=== PATIENT | female | born 1950 | race Caucasian/White ===

== ENCOUNTER 2017-03-14 17:15 | Inpatient (IN) ==
[2017-03-14] MEDS ORDERED: DUONEB (A & A) INH ONE (18:44)
--- NOTE | 2017-03-14 18:45 | PROVIDER DOCUMENTATION ---
HPI-General Adult - General Chief Complaint: Female Stated Complaint: UNABLE TO URINATE Time Seen by Provider: 03/14/17 18:23 Source: patient Allergies/Adverse Reactions: Patient Allergies Allergy/AdvReac Type Severity Reaction Status Date / Time No Known Allergies Allergy Verified 12/24/16 23:38 Home Medications: Home Medication List Medication Instructions Recorded Confirmed Last Taken Type Potassium Chloride 10 meq PO DAILY 12/24/16 03/14/17 03/14/17 08:00 History Spironolactone 25 mg PO DAILY 12/24/16 03/14/17 03/14/17 08:00 History Tramadol [Ultram] 50 mg PO BID 12/24/16 03/14/17 2 Months Ago History Losartan Potassium [Cozaar] 100 mg PO DAILY #30 tablet 12/25/16 03/14/17 08:00 Rx Triamterene/Hctz [Maxzide 75/50] 1 each PO DAILY #30 tablet 12/25/16 03/14/17 08:00 Rx - History of Present Illness -Gen Adult Nature of Presenting Problems: 67 year old obese WF presents with multiple complaints. pt reports a 5 day history of pain with urination and then this afternoon when she would urinate, she would urinate, stop and felt like she was unable to empty her bladder. associated symptoms include weakness, loss of appetite with nausea. pt reports she has eaten nothing today at all. additional complaints include an abscess to her right inner thigh that developed 4 days ago with development of erythema, hot painful bilateral lower extremities. pt reports she does not walk and uses a wheelchair because her legs "do not work right." she reports she has been in a wheelchair for years. additional complaints include shortness of breath with wheezing for weeks, exacerbated with exertion. positive for nonproductive cough. pt in no distress, awake, alert, appropriate. pt reports she does not have a PMD, should be taking medications for HTN but ran out several weeks ago. pt reports she has insurance but does not like seeing physicians. pt report she saw Dr. Messer 10 years ago but she cant remember why she was seeing him. Location of Pain/Injury: reports: abdomen Pain Radiation: reports: no radiation Quality of Pain: reports: dull Severity: reports: mild Onset/Duration: reports: 5 days ago Timing: reports: still present, constant, getting worse Context/Activities at Onset: reports: none Modifying Factors: improves with: nothing Associated Symptoms: reports: fatigue, fever/chills, loss of appetite, malaise, nausea, shortness of breath, weakness Similar Symptoms Previously?: No Recently seen or treated by another doctor?: No Review of Systems - Adult - REVIEW OF SYSTEMS - ADULT Constitutional: reports: see HPI, chills, fatique. denies: fever Eyes: reports: no symptoms reported. denies: discharge, blurred vision, double vision Ears, Nose, Mouth & Throat: reports: no symptoms reported. denies: ear discharge, ear pain, nose pain, loose teeth, throat pain, throat swelling Cardiovascular: reports: no symptoms reported. denies: chest pain, syncope Respiratory: reports: see HPI, dyspnea on exertion, shortness of breath, wheezing. denies: chronic cough, cough, excessive sputum production, hemoptysis , pleurisy Gastrointestinal: reports: see HPI, abdominal pain, nausea, poor appetite. denies: hematemesis, constipation, diarrhea, difficulty swallowing, frequent heartburn, vomiting Genitourinary: reports: see HPI, dysuria, hesitency, incontinence, urinary retention. denies: discharge, frequency Musculoskeletal: reports: no symptoms reported Integumentary: reports: see HPI, rash, skin sores/ulcer Neurological: reports: no symptoms reported. denies: ataxia, dizziness/vertigo , numbness, paresthesia, tremors Psychiatric: reports: no symptoms reported Endocrine: reports: no symptoms reported Hematologic/Lymphatic: reports: no symptoms reported Allergic/Immunologic: reports: no symptoms reported All Other Systems: Reviewed and Negative Past History - Adult - PAST MEDICAL HISTORY-ADULT Review of Records: reports: Old Records Reviewed, Nursing Assessment Review, Medications Reviewed, Social history reviewed & non-contributory. Major Childhood Illnesses: reports: denies history Cardiovascular: reports: HTN Respiratory: reports: denies history Gastrointestinal: reports: denies history Obstetrical/Gynecological: reports: denies history Genitourinary: reports: denies history Musculoskeletal: reports: arthritis Neurological: reports: denies history Endocrine/Immune: reports: denies history Other Conditions: reports: denies history - PRIOR SURGERIES/PROCEDURES Surgical/Procedure History: reports: none - IMMUNIZATION STATUS Childhood Immunizations: See Nurse Assessment Flu Vaccine: See Nurse Assessment - FAMILY HISTORY Family History: reviewed, not pertinent - SOCIAL HISTORY Smoking: cigarettes, less than 1 pack/day Provider spent 3-5 mins advising pt. on dangers of tobacco.: Discussed manners to quit use, and f/u contacts for add'l counseling. Substance Use: none/never Alcohol Use Frequency: never Physical Exam-General - PHYSICAL EXAM-ADULT Initial Vital Signs Reviewed: Yes - CONSTITUTIONAL General Appearance: appears well, alert, no apparent distress, obese. negative : mild distress, moderate distress, severe distress, lethargic, slow to respond , obtunded, combative - EYES Eyes: pink conjunctivae. negative: photophobia, sclera injected, scleral icterus, subconjunctival hemorrhage - HEAD, EARS, NOSE, MOUTH & THROAT HENMT: normocephalic/atraumatic, moist mucous membranes, normal ENT inspection - NECK Neck: non-tender, full range of motion, supple, normal inspection. negative: C- spine tenderness, limited range of motion, tender lateral, tender midline - RESPIRATORY Respiratory: chest non-tender, no pleuratic chest pain, no respiratory distress , no accessory muscle use, decreased breath sounds, rhonchi, wheezing. negative : lungs clear, normal breath sounds, respiratory distress, accessory muscle use , crackles, rales, stridor, decreased rate, increased rate - CARDIOVASCULAR Cardiovascular: normal peripheral pulses, regular rate, rhythm - GASTROINTESTINAL (ABDOMEN) Abdominal Exam: normal bowel sounds, soft, tenderness (suprapubic region). negative: non tender, no organomegaly, no pulsatile mass, abdominal bruit, abnormal bowel sounds, distended, guarding, rigid, rebound, hernia, mass, hepatomegaly, spleenomegaly, McBurney's point tenderness, Lopez's sign, obturator sign, psoas, Rovsing's sign - MUSCULOSKELETAL Back Exam: normal inspection, no CVA tenderness, no vertebral tenderness. negative: CVA tenderness, decreased range of motion, swelling, vertebral tenderness Extremity: normal capillary refill, calf tenderness (bilaterally), erythema ( bilateral lower extremity erythema;), inflammation, pedal edema, swelling, tenderness. negative: normal range of motion, non-tender, normal gait, normal inspection, no pedal edema, no calf tenderness, pelvis stable, abnormal NV exam , deformity, joint effusion, pulse deficit, slow capillary refill Peripheral Pulses: radial (R): 2+, radial (L): 2+, dorsalis-pedis (R): 2+, dorsalis-pedis (L): 2+ - SKIN Integumentary: normal turgor, warm/dry, erythema, swelling, tenderness, warm ( hot to touch bilaterally). negative: normal color - NEUROLOGIC Neurologic: grossly normal, no motor/sensory deficits - PSYCHIATRIC Psych/Mental Status: normal mood/affect, normal thought content, normal thought process, oriented x 3 Progress - PLAN OF CARE/RESULTS Progress/Plan/Lab Results: Vital Signs - 8 hr 03/14/17 17:16 Temperature 99.1 F Pulse Rate 88 Respiratory Rate 20 Blood Pressure 157/43 O2 Sat by Pulse Oximetry 100 Orders Category Date Time Status Paredes Cath Insertion ORDERED Care 03/14/17 18:42 Ordered Saline Loc DIRECTED Care 03/14/17 18:42 Ordered NPO Diet 03/14/17 18:42 Ordered FLAT/UPRIGHT ABD/1 VIEW CHEST [RAD] Stat Exams 03/14/17 18:43 Ordered AMYLASE [CHEM] Stat Lab 03/14/17 18:42 Uncollected BLOOD CULTURE [BLDCUL] Stat Lab 03/14/17 18:43 Uncollected CBC WITH ELECTRONIC DIFF [HEME] Stat Lab 03/14/17 18:42 Uncollected COMPREHENSIVE METABOLIC PANEL [CHEM] Stat Lab 03/14/17 18:42 Uncollected LACTATE, PLASMA [CHEM] Stat Lab 03/14/17 18:42 Uncollected LIPASE [CHEM] Stat Lab 03/14/17 18:42 Uncollected URINALYSIS W/POSS RFLX CULT-1 [URINALYSIS] Stat Lab 03/14/17 18:42 Uncollected Albuterol 2.5MG/Ipratrop 0.5MG [Duoneb (A & A)] Med 03/14/17 18:44 Once 3 ml INH NOW ONE Aerosol Treatments Routine Oth 03/14/17 18:44 Ordered Aerosol Treatments Stat Oth 03/14/17 18:44 Ordered Laboratory Tests 03/14/17 03/14/17 03/14/17 19:14 20:20 20:20 WBC RBC Hgb Hct MCV MCH MCHC RDW Std Deviation Plt Count MPV Immature Gran % (Auto) Neut % (Auto) Lymph % (Auto) [place] % (Auto) Eos % (Auto) Baso % (Auto) Immature Gran # (Auto) Neut # (Auto) Lymph # (Auto) [place] # (Auto) Eos # (Auto) Baso # (Auto) D-Dimer Sodium Potassium Chloride Carbon Dioxide Anion Gap BUN Creatinine Estimated GFR/1.73 m2 BUN/Creatinine Ratio Glucose Calculated Osmolality Calcium Total Bilirubin AST ALT Alkaline Phosphatase Creatine Kinase 44 Troponin T < 0.010 Total Protein Albumin Globulin Albumin/Globulin Ratio Amylase Lipase Plasma Lactate Urine Source CATH Urine Color BROWN Urine Turbidity TURBID Urine pH 6.0 Ur Specific [place] 1.005 Urine Protein 200 A Ur Glucose (Stick) NEGATIVE Ur Ketones (Stick) NEGATIVE Urine Blood SMALL A Urine Nitrite POSITIVE A Urine Bilirubin NEGATIVE Urobilinogen Dipstick NORMAL Urine Leukocytes LARGE A Urine WBC (Auto) TNTC A Urine RBC (Auto) <10 U Epithel Cells (Auto) >10 A Urine Bacteria (Auto) 1+ Urine Crystals Not Reportable Small Round Cells Not Reportable Urine Casts NONE SEEN Urine Yeast-like Cells NONE SEEN 03/14/17 03/14/17 03/14/17 20:20 20:20 20:20 WBC 10.53 RBC 4.20 Hgb 11.4 L Hct 35.3 L MCV 84.0 MCH 27.1 MCHC 32.3 L RDW Std Deviation 14.2 Plt Count 267 MPV 9.3 Immature Gran % (Auto) 0.6 H Neut % (Auto) 51.5 Lymph % (Auto) 35.8 [place] % (Auto) 10.6 H Eos % (Auto) 1.3 Baso % (Auto) 0.2 Immature Gran # (Auto) 0.06 H Neut # (Auto) 5.42 Lymph # (Auto) 3.77 H [place] # (Auto) 1.12 H Eos # (Auto) 0.14 Baso # (Auto) 0.02 D-Dimer 0.54 H Sodium 141 Potassium 3.7 Chloride 98 Carbon Dioxide 28 Anion Gap 15 BUN 6 L Creatinine 0.7 Estimated GFR/1.73 m2 > 60 BUN/Creatinine Ratio 9 Glucose 126 H Calculated Osmolality 280 Calcium 9.0 Total Bilirubin 0.33 AST 13 ALT 18 Alkaline Phosphatase 88 Creatine Kinase Troponin T Total Protein 6.4 Albumin 3.4 L Globulin 3.0 Albumin/Globulin Ratio 1.1 Amylase 14 L Lipase 11 L Plasma Lactate Urine Source Urine Color Urine Turbidity Urine pH Ur Specific [place] Urine Protein Ur Glucose (Stick) Ur Ketones (Stick) Urine Blood Urine Nitrite Urine Bilirubin Urobilinogen Dipstick Urine Leukocytes Urine WBC (Auto) Urine RBC (Auto) U Epithel Cells (Auto) Urine Bacteria (Auto) Urine Crystals Small Round Cells Urine Casts Urine Yeast-like Cells 03/14/17 20:20 WBC RBC Hgb Hct MCV MCH MCHC RDW Std Deviation Plt Count MPV Immature Gran % (Auto) Neut % (Auto) Lymph % (Auto) [place] % (Auto) Eos % (Auto) Baso % (Auto) Immature Gran # (Auto) Neut # (Auto) Lymph # (Auto) [place] # (Auto) Eos # (Auto) Baso # (Auto) D-Dimer Sodium Potassium Chloride Carbon Dioxide Anion Gap BUN Creatinine Estimated GFR/1.73 m2 BUN/Creatinine Ratio Glucose Calculated Osmolality Calcium Total Bilirubin AST ALT Alkaline Phosphatase Creatine Kinase Troponin T Total Protein Albumin Globulin Albumin/Globulin Ratio Amylase Lipase Plasma Lactate 1.3 Urine Source Urine Color Urine Turbidity Urine pH Ur Specific [place] Urine Protein Ur Glucose (Stick) Ur Ketones (Stick) Urine Blood Urine Nitrite Urine Bilirubin Urobilinogen Dipstick Urine Leukocytes Urine WBC (Auto) Urine RBC (Auto) U Epithel Cells (Auto) Urine Bacteria (Auto) Urine Crystals Small Round Cells Urine Casts Urine Yeast-like Cells Orders Category Date Time Status Cardiac Monitoring DIRECTED Care 03/14/17 20:00 Active Paredes Cath Insertion ORDERED Care 03/14/17 18:42 Active Saline Loc DIRECTED Care 03/14/17 18:42 Active NPO Diet 03/14/17 18:42 Active FLAT/UPRIGHT ABD/1 VIEW CHEST [RAD] Stat Exams 03/14/17 18:43 Completed AMYLASE [CHEM] Stat Lab 03/14/17 20:20 Completed BLOOD CULTURE [BLDCUL] Stat Lab 03/14/17 20:20 Results CBC WITH ELECTRONIC DIFF [HEME] Stat Lab 03/14/17 20:20 Completed CK PROFILE [SP CHEM] Stat Lab 03/14/17 20:20 Completed COMPREHENSIVE METABOLIC PANEL [CHEM] Stat Lab 03/14/17 20:20 Completed D-DIMER [CHEM] Stat Lab 03/14/17 20:20 Completed LACTATE, PLASMA [CHEM] Stat Lab 03/14/17 20:20 Completed LIPASE [CHEM] Stat Lab 03/14/17 20:20 Completed TROPONIN T Stat Lab 03/14/17 20:20 Completed URINALYSIS W/POSS RFLX CULT-1 [URINALYSIS] Stat Lab 03/14/17 19:14 Completed URINE CULTURE [RM] Routine Lab 03/14/17 19:56 Received URINE DRUG SCREEN Stat Lab 03/14/17 19:14 Received URINE MANUAL MICROSCOPIC [URINALYSIS] Stat Lab 03/14/17 19:14 Completed Albuterol 2.5MG/Ipratrop 0.5MG [Duoneb (A & A)] Med 03/14/17 18:44 Discontinued 3 ml INH NOW ONE CefTRIAXONE 1 GM/NS [Rocephin 1 gm/Ns] Med 03/14/17 19:58 Discontinued 1 gm in 50 ml IV NOW Morphine Med 03/14/17 21:06 Discontinued 4 mg IV NOW ONE Ondansetron [Zofran] Med 03/14/17 21:06 Discontinued 4 mg IV NOW ONE Vancomycin 1 gm IV Now Med 03/14/17 22:08 Ordered Vancomycin 1 gm/Ns 1 gm in 250 ml IV NOW Aerosol Treatments Routine Oth 03/14/17 18:44 Completed Aerosol Treatments Stat Oth 03/14/17 18:44 Completed EKG [EKG] Stat Ther 03/14/17 19:06 Ordered Vital Signs - 24 hr 03/14/17 17:16 03/14/17 18:56 Temperature 99.1 F Pulse Rate 88 88 Respiratory Rate 20 16 Blood Pressure 157/43 O2 Sat by Pulse Oximetry 100 Reviewed labs, H&P with Dr. Joy, agrees with plan of care, treatment, admission. Supervised visit. Result Diagrams: 03/14/17 20:20 03/14/17 20:20 - CONSULTS/PCP/HOSPITALIST Notification #1 *Consult/PCP/Hospitalist*: Dr. Schrader Time Discussed: 22:11 Consult Disposition: Will see in ED, Admit Departure - Departure Date of Disposition Decision: 03/14/17 Time of Disposition Decision: 22:09 DIAGNOSIS: UTI (urinary tract infection) Qualifiers: Urinary tract infection type: acute pyelonephritis Qualified Code(s): N10 - Acute pyelonephritis Cellulitis Qualifiers: Site of cellulitis: extremity Site of cellulitis of extremity: lower extremity Laterality: unspecified laterality Qualified Code(s): L03.119 - Cellulitis of unspecified part of limb Disposition: ADMITTED INPATIENT 09 Certified Medical Emergency: Emergent Condition: Stable Referrals and Follow-Ups: None,PCP [Primary Care Provider] - - Critical Care Note This patient required my direct & personal management of CC.: No Attestation - Physician/ MATT Attestation Patient care was provided by Advanced Practice Provider:: Yes Advanced Practice Provider:: Kevon Blair Advanced Practice Provider documentation review:: The Mid-level provider documentation, treatment plan and medical decision making was reviewed by the physician who agrees with all treatment and medical decision making by the MLP. The physician spent face to face time with patient:: No Advanced Practice Provider documentation review:: Supervising physician onsite and consulted in the evaluation and care of this patient. The physician did not have a face to face encounter with the patient.
[2017-03-14 19:43] LABS: URINE SOURCE CATH
[2017-03-14 19:51] LABS: BILIRUBIN URINE NEGATIVE (NEGATIVE); BLOOD URINE SMALL (NEGATIVE); COLOR BROWN; GLUCOSE URINE NEGATIVE (NEGATIVE); LEUKOCYTES URINE LARGE (NEGATIVE); NITRITE URINE POSITIVE (NEGATIVE); PROTEIN URINE 200 mg/dL (NEGATIVE); SP GRAVITY URINE 1.005; TURBIDITY URINE TURBID (CLEAR); UROBILINOGEN URINE NORMAL (NORMAL)
[2017-03-14 19:55] LABS: UR EPITHELIAL CELLS >10 /HPF (<10); URINE BACTERIA 1+ /HPF; URINE CULTURE NEEDED? YES; URINE MICRO REVIEW NEEDED? YES; URINE RBC <10 /HPF (<10); URINE WBC TNTC /HPF (<10)
[2017-03-14] MEDS ORDERED: ROCEPHIN 1 GM/NS 1 GM/50 ML IVPB IV ONE (19:58)
[2017-03-14 20:00] LABS: URINE CASTS NONE SEEN
--- NOTE | 2017-03-14 20:18 | Diag Imaging Result Doc PS360 ---
EXAM: FLAT/UPRIGHT ABD/1 VIEW CHEST HISTORY: cough, fever, urinary retention TECHNIQUE: Three views COMPARISON: 12/25/2016 FINDINGS: The lungs are well expanded. There are no infiltrates. No cardiomegaly. Stool throughout the colon. Minimal air within several small bowel loops. No organomegaly. The gallbladder has been removed. IMPRESSION: No pneumonia. There is mild constipation. Follow-up films recommended. Electronically signed by Mateo Velazquez 03/14/2017 8:16 PM
[2017-03-14 20:39] LABS: MANUAL DIFF NEEDED? NO
[2017-03-14 20:44] LABS: BASO% 0.2 % (0.0-0.8); EOS# 0.14 X1000 (0.0-0.7); EOS% 1.3 % (0.0-10.0); HEMATOCRIT 35.3 % (37.0-47.0); HEMOGLOBIN 11.4 g/dL (12.0-16.0); IMM GRAN# 0.06 X1000 (0.0-0.04); IMM GRAN% 0.6 % (0.0-0.5); LYMPH# 3.77 X1000 (1.2-3.4); LYMPH% 35.8 % (20.5-51.1); MCH 27.1 PG (27-31); MCHC 32.3 g/dL (33-37); MONO# 1.12 X1000 (0.11-0.59); MONO% 10.6 % (1.7-9.3); MPV 9.3 FL (7.4-10.4); NEUT% 51.5 % (42.2-75.2); PLT 267 X1000 (130-400)
[2017-03-14] MEDS ORDERED: MORPHINE IV ONE (21:06)
[2017-03-14] MEDS ORDERED: ZOFRAN IV ONE (21:06)
[2017-03-14 21:56] LABS: AGAP 15; ALBUMIN 3.4 g/dL (3.5-5.0); ALKALINE PHOSPHATASE 88 U/L (32-104); AMYLASE 14 U/L (20-200); BUN 6 mg/dL (8-22); CHLORIDE 98 mmol/L (98-107); COSMO 280; GOT 13 U/L (10-30); GPT 18 U/L (10-36); LIPASE 11 U/L (13-60); POTASSIUM 3.7 mmol/L (3.5-5.1); SODIUM 141 mmol/L (136-145); TCO2 28 mmol/L (25-35); TOTAL BILIRUBIN 0.33 mg/dL (0.20-1.00); TOTAL PROTEIN 6.4 g/dL (6.3-8.3)
[2017-03-14] MEDS ORDERED: VANCOMYCIN 1 GM/NS 1 GM/250 ML IVPB IV ONE (22:08)
[2017-03-14 22:30] LABS: UR AMPHETAMINES QUAL NONE DETECTED (NONE DETECT); UR BARBITUATES QUAL NONE DETECTED (NONE DETECT); UR BENZODIAZEPIN QUAL PRESUMPTIVE POSITIVE (NONE DETECT); UR CANNABINOIDS QUAL NONE DETECTED (NONE DETECT); UR COCAINE QUAL NONE DETECTED (NONE DETECT); UR METHADONE QUAL PRESUMPTIVE POSITIVE (NONE DETECT); UR OPIATES QUAL NONE DETECTED (NONE DETECT); UR OXYCODONE QUAL NONE DETECTED (NONE DETECT); UR PCP QUAL NONE DETECTED (NONE DETECT)
[2017-03-14] MEDS ORDERED: VANCOMYCIN IV PER PHARMACY MISC SCH (23:45)
[2017-03-15] MEDS ORDERED: VANCOMYCIN 1 GM/NS 1 GM/250 ML IVPB IV ONE (01:00)
[2017-03-15] MEDS: ZOFRAN IV PRN ×4 (01:38→22:48)
[2017-03-15] MEDS: MORPHINE IV PRN ×6 (01:38→22:48)
[2017-03-15 05:35] LABS: MANUAL DIFF NEEDED? NO
[2017-03-15 05:50] LABS: BASO% 0.1 % (0.0-0.8); EOS# 0.17 X1000 (0.0-0.7); EOS% 1.9 % (0.0-10.0); HEMATOCRIT 32.1 % (37.0-47.0); HEMOGLOBIN 10.3 g/dL (12.0-16.0); IMM GRAN# 0.05 X1000 (0.0-0.04); IMM GRAN% 0.6 % (0.0-0.5); LYMPH# 3.04 X1000 (1.2-3.4); LYMPH% 34.4 % (20.5-51.1); MCH 27.2 PG (27-31); MCHC 32.1 g/dL (33-37); MCV 84.7 FL (81-99); MONO# 1.06 X1000 (0.11-0.59); MPV 9.1 FL (7.4-10.4); PLT 232 X1000 (130-400); RBC 3.79 XMIL (4.2-5.4)
[2017-03-15 06:04] LABS: AGAP 11; BUN 6 mg/dL (8-22); CALCIUM 8.3 mg/dL (8.8-10.2); CHLORIDE 99 mmol/L (98-107); COSMO 277; POTASSIUM 3.9 mmol/L (3.5-5.1); SODIUM 139 mmol/L (136-145); TCO2 29 mmol/L (25-35)
--- NOTE | 2017-03-15 06:06 | HISTORY AND PHYSICAL ---
CHIEF COMPLAINT: Lower extremity edema and erythema, and not feeling well. PRIMARY CARE PHYSICIAN: None. HISTORY OF PRESENTING ILLNESS: A 67-year-old female with a history of hypertension who had presented to the emergency department with a several day history of having lower extremity edema and erythema. She states it was getting painful and she was having some burning with urination. She was evaluated in the ER. She was noted to have cellulitis on bilateral lower extremities. Due to her presenting symptoms and overall deconditioning, it was thought that she would need hospitalization for further evaluation and management. At the time of my examination, she had denied any headache, fever, chills, chest pain, or shortness of breath but complained of lower extremity pain and not feeling well. PAST MEDICAL HISTORY: Includes hypertension. PAST SURGICAL HISTORY: Cholecystectomy and umbilical hernia repair. ALLERGIES: No known drug allergies. CURRENT MEDICATIONS: As listed on the medication reconciliation sheet. SOCIAL HISTORY: Twenty pack year history of smoking. Denies any history of alcohol or illicit drug use. FAMILY HISTORY: Positive for coronary disease in father. REVIEW OF SYSTEMS: Twelve point review of systems as listed in the HPI. Other systems negative. PHYSICAL EXAMINATION: GENERAL: Cooperative, friendly, obese female. She is without any respiratory distress. VITAL SIGNS: Temperature 99.1 degrees, pulse 80, respirations 20, blood pressure 157/43. HEENT: Atraumatic, normocephalic. Extraocular movements intact. PERRLA. NECK: No masses. CHEST: Clear to auscultation. CARDIOVASCULAR: Regular rate and rhythm. ABDOMEN: Soft, obese, positive bowel sounds. EXTREMITIES: There is +2 edema. There is a moderate amount of erythema noted on bilateral lower extremities. : No bladder distention. SKIN: Good color. LABORATORIES AND STUDIES: WBC 10.53, hemoglobin 11.4, hematocrit 35.3, platelets 267,000. Sodium 141, potassium 3.7, chloride 98, CO2 is 28, BUN is 6, creatinine 0.7, glucose 126. Urine is nitrite positive and large leukocytes. ASSESSMENT: A 67-year-old, morbidly obese female with a history of hypertension and overall deconditioning, and basically wheelchair bound. Presented to the emergency department with a several day history of lower extremity edema and erythema. She was evaluated in the emergency room. Symptoms were consistent with cellulitis. She will need hospitalization for management. 1. Bilateral lower extremity cellulitis. 2. Urinary tract infection. 3. Hypertension. 4. Morbid obesity. 5. Overall deconditioning. PLAN: 1. We will admit patient to the medical floor with telemetry. 2. We will check blood cultures and start the patient on IV antibiotics. 3. We will check urine cultures and continue with antibiotics. 4. We will monitor blood pressure and resume antihypertensive agents. 5. We will consult physical therapy to assist patient with ambulation. 6. We will put patient on DVT prophylaxis with heparin. 7. We will continue to follow and reassess. cc: Husam Schrader MD
[2017-03-15] MEDS ORDERED: ULTRAM PO PRN (08:54)
--- NOTE | 2017-03-15 09:17 | PROGRESS NOTE ---
DATE: 03/15/2017 SUBJECTIVE: This is a 67-year-old who was admitted yesterday per Dr. Husam Schrader. She presented with lower extremity edema, erythema and not feeling well. A 67-year-old with history of hypertension, who had presented to the emergency room with several day history of lower extremity edema and erythema. He stated it was getting painful and burning. She also complained of burning with urination. The report was that the urine looked thick and, in her words, "like milk". She has not walked in several years. She has overall deconditioning confined to the bed. Her daughter was at the bedside. Works for home health, I believe, and spent the night with her. PAST MEDICAL HISTORY: 1. Unremarkable except for hypertension, cholecystectomy, umbilical hernia repair in the past. So, she was admitted with chronic venous insufficiency and bilateral cellulitis, erythema and tenderness. 2. Urinary tract infection. 3. Hypertension. 4. Morbid obesity. 5. Overall deconditioning. OBJECTIVE: Vital Signs: On exam today, temp 98.7 degrees, pulse 90, respirations 20, blood pressure 181/56. HEENT: Her CVP is less than 6 cm. Neck: No distended neck veins. Lungs: Clear anterolateral Cardiovascular exam: Regular rhythm and rate without murmur or S3. Abdomen: Soft. Extremities: She has really pretty symmetrical erythema predominantly on the anterior shins, but does extend around to the posterior calf on the right side. It goes up past into the distal posterior thigh. : Urine output is over 2 L. REVIEW OF LABS: Compared to yesterday, white count is 8830, hematocrit 32, platelet count 232,000. Electrolytes look good. Serum creatinine stable at 0.6. Liver enzymes unremarkable. Albumin 3.4. ASSESSMENT AND PLAN: Looking into her orders, she is on vancomycin and ceftriaxone; ceftriaxone 1 g daily and the vancomycin is 2 g every 18 hours. She is getting morphine as needed for pain. She does complain of left knee pain and I think she has used the tramadol before. Continue to encourage her to elevate the feet. She denies the use of Neosporin. She has a Paredes catheter in at the present time. Of course, blood cultures times two, which are pending. cc: Jonnie Verduzco MD
[2017-03-15] MEDS: COZAAR PO SCH (09:50)
[2017-03-15] MEDS: ALDACTONE PO SCH (09:50)
[2017-03-15] MEDS: HEPARIN SUBQ SCH ×2 (09:51→21:29)
--- NOTE | 2017-03-15 11:04 | Diag Imaging Result Doc PS360 ---
EXAM: CHEST-PORTABLE HISTORY: sob TECHNIQUE: Portable upright AP COMPARISON: 03/14/2017 FINDINGS: The lungs are well expanded. The heart is borderline mildly prominent although this is a portable upright exam. The vessels are not distended. No pneumonia. No pleural effusions identified. IMPRESSION: Borderline mildly prominent heart, but no other evidence of congestive failure. Electronically signed by Mateo Velazquez 03/15/2017 11:02 AM
[2017-03-15] MEDS: VANCOMYCIN 2,000 MG in NS 500 ML IV SCH (17:39)
[2017-03-15] MEDS: NICODERM PATCH TD SCH (19:50)
[2017-03-15] MEDS: ROCEPHIN 1 GM/NS 1 GM/50 ML IVPB IV SCH (21:29)
[2017-03-16] MEDS: MORPHINE IV PRN ×6 (02:56→23:42)
[2017-03-16] MEDS: ZOFRAN IV PRN (02:56)
[2017-03-16 06:31] LABS: AGAP 7; BUN 10 mg/dL (8-22); CALCIUM 9.4 mg/dL (8.8-10.2); CHLORIDE 100 mmol/L (98-107); COSMO 276; MAGNESIUM 1.8 mg/dL (1.5-2.7); POTASSIUM 3.9 mmol/L (3.5-5.1); SODIUM 138 mmol/L (136-145); TCO2 31 mmol/L (25-35)
[2017-03-16] MEDS: NICODERM PATCH TD SCH ×2 (07:43→11:12)
[2017-03-16] MEDS: ALDACTONE PO SCH ×2 (07:43→11:12)
[2017-03-16] MEDS: COZAAR PO SCH ×2 (07:43→11:13)
[2017-03-16] MEDS: HEPARIN SUBQ SCH ×3 (07:43→23:32)
[2017-03-16] MEDS: VANCOMYCIN 2,000 MG in NS 500 ML IV SCH (12:52)
--- NOTE | 2017-03-16 14:19 | PROGRESS NOTE ---
DATE: 03/16/2017 SUBJECTIVE: Ms. Arguello is a 67 year old. Her legs are definitely better. Decreased erythema and decreased swelling and decreased pain. She has symmetrical erythema on anterior shins. She is eating okay. She saw the Paredes catheter. OBJECTIVE: Vital Signs: Temp 99.2 degrees, pulse 50, respirations 16, blood pressure 170/59. Lungs: Clear anterolateral Cardiovascular exam: Regular rhythm and rate. Abdomen: Soft. Extremities: She has trace to 1+ pitting edema still ankle to mid soto. Poorly defined erythematous patch in the anterior of both shins. LAB REVIEWED: From the third, hematocrit stable at 32. Electrolytes checked this morning unremarkable. Serum creatinine 0.8. X-RAY REVIEWED: Chest x-ray was obtained and no sign of any infiltrate. ASSESSMENT AND PLAN: 1. Cellulitis, both lower extremities. Receiving vancomycin and ceftriaxone. Blood cultures are negative. Urine did culture Escherichia coli. 2. Questionable urinary tract infection. Treating as if urinary tract infection. Grew out Escherichia coli which was sensitive to cefazolin. Review of orders: I do not see anything to change at this point. We will stop her Paredes catheter tomorrow and make plans. Maybe she could be discharged after another 24 hours. cc: Jonnie Verduzco MD
[2017-03-16] MEDS: ROCEPHIN 1 GM/NS 1 GM/50 ML IVPB IV SCH (23:32)
[2017-03-17] MEDS: MORPHINE IV PRN ×2 (03:58→08:19)
[2017-03-17] MEDS: VANCOMYCIN 2,000 MG in NS 500 ML IV SCH (06:09)
[2017-03-17 08:02] VITALS: BP 183/84
[2017-03-17] MEDS: ALDACTONE PO SCH (08:19)
[2017-03-17] MEDS: ZOFRAN IV PRN (08:19)
[2017-03-17] MEDS: HEPARIN SUBQ SCH (08:19)
[2017-03-17] MEDS: COZAAR PO SCH (08:19)
[2017-03-17] MEDS: NICODERM PATCH TD SCH (08:20)
--- NOTE | 2017-03-17 12:21 | DISCHARGE SUMMARY ---
ADMISSION DATE: 03/15/2017 DISCHARGE DATE: 03/17/2017 67-year-old, history of hypertension who presented to the emergency department with a several day history of having lower extremity edema and erythema. States that it was getting painful and having some burning with urination. Evaluated in the emergency room. She has not had cellulitis in both lower extremities with erythema and tenderness. She was put in the hospital, given IV antibiotics. Her cellulitis seemed to improve every day. PAST MEDICAL HISTORY: Includes hypertension. PAST SURGICAL HISTORY: Cholecystectomy and umbilical hernia repair in the past. Her cultures, urine grew out E. coli. Blood cultures from the 2nd were negative after 48 hours. E. coli was sensitive to everything. She is not allergic to anything and plan to give her Bactrim Double Strength 1 twice a day for another 5 days. At her discharge on 03/17/2017 erythema had resolved in her legs. We had treated her with Rocephin IV. I will give her a nicotine patch, to be on her Cozaar. She would like guaifenesin for her drainage and I gave her Flonase nasal spray, and also a prescription for support stockings. She is to follow up with her primary care. She would like to see nurse practitioner Ina Leiva and will give her that number. cc: Jonnie Verduzco MD
== END 2017-03-17 13:43 | disposition home or self-care (01) ==
LOC: ED 17:15 → 4N 03-15 → SUATTDRO 03-15 → 4N 03-15 00:05
PROVIDERS: ATTEND Emergency Medicine

== ENCOUNTER 2017-04-24 12:16 | Inpatient (IN) ==
[2017-04-24 13:21] LABS: MANUAL DIFF NEEDED? NO
[2017-04-24 13:27] LABS: BASO% 0.4 % (0.0-0.8); EOS# 0.35 X1000 (0.0-0.7); HEMATOCRIT 37.7 % (37.0-47.0); HEMOGLOBIN 12.4 g/dL (12.0-16.0); IMM GRAN# 0.03 X1000 (0.0-0.04); IMM GRAN% 0.3 % (0.0-0.5); LYMPH# 2.89 X1000 (1.2-3.4); LYMPH% 24.6 % (20.5-51.1); MCH 26.7 PG (27-31); MCHC 32.9 g/dL (33-37); MCV 81.1 FL (81-99); MONO# 0.96 X1000 (0.11-0.59); MONO% 8.2 % (1.7-9.3); NEUT% 63.5 % (42.2-75.2); PLT 271 X1000 (130-400); RBC 4.65 XMIL (4.2-5.4)
--- NOTE | 2017-04-24 13:47 | Diag Imaging Result Doc PS360 ---
EXAM: CHEST-PORTABLE HISTORY: SOB TECHNIQUE: AP portable upright at 1344 COMMENT: There is cardiomegaly. The appearance the chest has not changed appreciably since 03/15/2017. IMPRESSION: Stable chest. Electronically signed by Amilcar Tinoco 04/24/2017 1:45 PM
--- NOTE | 2017-04-24 13:47 | EKG Report ---
Test Performed on : 04/24/2017 1:09:52 PM Test Reason : SOB Blood Pressure : / mmHG Vent. Rate : 040 BPM Atrial Rate : 040 BPM P-R Int : 174 ms QRS Dur : 098 ms QT Int : 506 ms P-R-T Axes : 017 021 110 degrees QTc Int : 412 ms Marked sinus bradycardia. with sinus arrhythmia. Nonspecific ST and T wave abnormality Abnormal ECG When compared with ECG of 19-SEP-2016 14:41, T wave amplitude has decreased in Inferior leads T wave inversion more evident in Anterolateral leads Unconfirmed Result
[2017-04-24 14:56] LABS: URINE CULTURE NEEDED? NO; URINE MICRO REVIEW NEEDED? NO; URINE SOURCE CLEAN CATCH
[2017-04-24 15:08] LABS: BILIRUBIN URINE NEGATIVE (NEGATIVE); BLOOD URINE NEGATIVE (NEGATIVE); COLOR YELLOW; GLUCOSE URINE NEGATIVE (NEGATIVE); LEUKOCYTES URINE NEGATIVE (NEGATIVE); NITRITE URINE NEGATIVE (NEGATIVE); PH URINE 7.5; PROTEIN URINE NEGATIVE (NEGATIVE); SP GRAVITY URINE 1.005; TURBIDITY URINE CLEAR (CLEAR); UR EPITHELIAL CELLS <10 /HPF (<10); URINE BACTERIA NEGATIVE /HPF; URINE RBC <10 /HPF (<10); URINE WBC <10 /HPF (<10); UROBILINOGEN URINE NORMAL (NORMAL)
[2017-04-24 15:40] LABS: AGAP 16; ALBUMIN 4.2 g/dL (3.5-5.0); ALKALINE PHOSPHATASE 94 U/L (32-104); BUN 9 mg/dL (8-22); CALCIUM 9.4 mg/dL (8.8-10.2); CHLORIDE 91 mmol/L (98-107); COSMO 270; GOT 18 U/L (10-30); GPT 12 U/L (10-36); POTASSIUM 3.2 mmol/L (3.5-5.1); SODIUM 136 mmol/L (136-145); TCO2 29 mmol/L (25-35); TOTAL BILIRUBIN 0.26 mg/dL (0.20-1.00); TOTAL PROTEIN 7.8 g/dL (6.3-8.3)
[2017-04-24] MEDS ORDERED: LASIX IV ONE (16:54)
[2017-04-24] MEDS ORDERED: KEFZOL 1 GM/D5W 1 GM/50 ML IVPB IV ONE (17:08)
[2017-04-24] MEDS ORDERED: SODIUM CHLORIDE 0.9% INJ ONE (17:26)
[2017-04-24] MEDS ORDERED: PHENERGAN IV ONE (17:26)
--- NOTE | 2017-04-24 19:04 | HISTORY AND PHYSICAL ---
HISTORY OF PRESENT ILLNESS: 67-year-old who was recently admitted 03/14/2017. She has no primary care physician. Lower extremity edema and erythema is what she is complaining of. She was recently admitted on 03/15/2017 for the same complaints. PAST MEDICAL HISTORY: Hypertension. I think she has an echocardiogram that shows ejection fraction of 25% and she is status post cholecystectomy and umbilical hernia repair. She is recently put on a Medrol dose pack and she said that really helped her legs feel better but she complains shortness of breath, increased swelling, increased orthopnea, denies any chest pain, fever chills or pleuritic pain. ALLERGIES: No known drug allergies. SOCIAL HISTORY: 20 pack-year history of smoking, no history of alcohol or drug use. FAMILY HISTORY: Positive for coronary artery disease in the family otherwise unremarkable. REVIEW OF SYSTEMS: Respiratory: Pertinent for respiratory increased orthopnea, increased dyspnea on exertion, increased pedal edema. Hematologic and lymphatic: Increased lower extremity edema and increased pain and swelling in the legs. Cardiovascular: Denies any chest pain or palpitations. She does have a history of reduced ejection fraction, systolic congestive heart failure. : No gross hematuria, dysuria. Musculoskeletal/Neurologic: No focal complaints. Endocrinologic/Hematologic: No pertinent history or complaints. PHYSICAL EXAMINATION: VITAL SIGNS: Temperature 97.8 degrees, pulse 50, respirations 16, blood pressure 220/68. HEENT: Her pupils are equal, round. CVP is about 10 cm water pressure. She has. LUNGS: With rales at the lung bases otherwise clear. No wheezing. No prolonged expiratory phase. CARDIOVASCULAR: Regular rhythm, rate without murmur, S3. PMI nondisplaced but diminished. ABDOMEN: Soft, positive hepatojugular reflex. SKIN: Warm and dry. NECK: Supple. No thyromegaly, carotid radial and femoral pulses appeared to be 2+ and symmetrical. EXTREMITIES: With 2+ pitting edema from ankle to mid soto and some swelling all the way to the knee symmetrical. Height is 5 feet 8 inches. LAB: White count 11,770, hematocrit 37, platelet count 271,000. Sodium 136, potassium 3.2, chloride 91, BUN 9, creatinine 0.7, blood sugar 90, calcium 9.4, troponin less than 0.01. ProBNP was 1560, albumin 4.2. Urinalysis unremarkable. Chest x-ray. No cardiomegaly, appearance of chest is unchanged. Looking back her echocardiogram though she had a extremity venous study done on 04/09/2016 and no deep or superficial thrombosis at that time. She may have had a right popliteal cyst though. Abdominal pelvic CT done 09/19/2016 probable cholecystitis at that time, diverticulosis, ventral hernia, ovarian cyst. She was seen back in September 2007[address] Umanzor, Dr. Giuseppe Fisher has evaluated her as well. She underwent laparoscopic cholecystectomy with operative cholangiogram apparently did fairly well. The echocardiogram on 06/13/2013 technically difficult study, normal left ventricular function hyperdynamic with ejection fraction of 75-80% that time so I am not sure where we got the report of 25%. Wall motion abnormalities were difficult to assess with that 1, mild diastolic dysfunction was suspected. There was sclerosis of the aortic valve but no stenosis, pulmonary pressure appeared to be about 36 mmHg. Concentric LVH and could not exclude mild hypertrophic cardiomyopathy, concentric LVH. ASSESSMENT AND PLAN: 1. Pedal edema sounds like diastolic dysfunction with chronic venous insufficiency. Want to repeat her echocardiogram. We will see if we can diurese a little bit but I think we have be careful with diuresis given concentric hypertrophy. Her renal function looks good. Chest x- ray unremarkable and did not appreciate a lot of pulmonary hypertension on the x-ray. Her medications at home she is on Cozaar 100 mg a day, potassium chloride 10 mEq a day, spironolactone 25 mg a day, Ultram 50 mg q.6 hours and Maxzide 75-50 one daily. I am going stop her diuretics based on the previous echocardiogram. We will repeat another echocardiogram in the morning and elevate her feet and will repeat a chest x-ray in the morning. Repeat electrolytes. I am going to check a T4 and TSH and cortisol level. 2. Hypertension. I think we need to go up on her afterload reducers, will see and follow her blood pressures clinically. She does have some mild bradycardia so I think we could try some Norvasc and see if that would help in addition to her losartan. 3. Chronic venous insufficiency, diastolic dysfunction aware. I do not see any true active cellulitis, her legs do feel warm, I will cover with vancomycin and watch clinically. 4. Morbid obesity. We have to work on her weight reduction. 5. General weakness especially in her legs. Family is concerned she is not going to be able - stay home like this. We are going to need to work on strength at same time see if we can work on her decrease in her weight. cc: Jonnie Verdzuco MD
[2017-04-24] MEDS ORDERED: MEDROL DOSEPAK PO SCH (20:42)
[2017-04-24] MEDS ORDERED: CATAPRES PO PRN (20:42)
[2017-04-24] MEDS ORDERED: KLOR-CON PO SCH (21:00)
[2017-04-24] MEDS: COZAAR PO SCH (21:46)
[2017-04-24] MEDS: BACTROBAN OINTMENT TOP SCH (21:46)
[2017-04-24] MEDS: PRINIVIL PO SCH (21:47)
[2017-04-24 22:18] LABS: URINE MICRO REVIEW NEEDED? NO; URINE SOURCE CATH
[2017-04-24 22:25] LABS: BILIRUBIN URINE NEGATIVE (NEGATIVE); BLOOD URINE NEGATIVE (NEGATIVE); COLOR STRAW; GLUCOSE URINE NEGATIVE (NEGATIVE); LEUKOCYTES URINE TRACE (NEGATIVE); NITRITE URINE NEGATIVE (NEGATIVE); PH URINE 7.5; PROTEIN URINE NEGATIVE (NEGATIVE); SP GRAVITY URINE 1.001; TURBIDITY URINE CLEAR (CLEAR); UR EPITHELIAL CELLS <10 /HPF (<10); URINE BACTERIA NEGATIVE /HPF; URINE CULTURE NEEDED? YES; URINE RBC <10 /HPF (<10); URINE WBC <10 /HPF (<10); UROBILINOGEN URINE NORMAL (NORMAL)
[2017-04-24 22:54] LABS: UR AMPHETAMINES QUAL NONE DETECTED (NONE DETECT); UR BARBITUATES QUAL NONE DETECTED (NONE DETECT); UR BENZODIAZEPIN QUAL NONE DETECTED (NONE DETECT); UR CANNABINOIDS QUAL NONE DETECTED (NONE DETECT); UR COCAINE QUAL NONE DETECTED (NONE DETECT); UR METHADONE QUAL PRESUMPTIVE POSITIVE (NONE DETECT); UR OPIATES QUAL NONE DETECTED (NONE DETECT); UR OXYCODONE QUAL NONE DETECTED (NONE DETECT); UR PCP QUAL NONE DETECTED (NONE DETECT)
--- NOTE | 2017-04-25 01:08 | ED EKG INTERP ---
This chart was entered by Meeta Blackwood Scribe, acting as scribe for Silvana Aviles MD. EKG Interpretation - EKG Time of EKG reading by physician:: 13:09 <Onofre Ferrari - Last Filed: 04/24/17 17:00> - EKG Time of EKG reading by physician:: 13:09 EKG Read and Signed by:: Silvana Aviles EKG Interpretation (*Must complete 3 of following elements*): Abnormal Rate: 40 Rhythm: marked sinus bradycardia with sinus arrhythmia Lerna: normal QRS: normal UT Interval: normal ST Wave: non-specific ST changes (nonspecific ST and T wave abnormality) <Silvana Aviles - Last Filed: 04/25/17 01:08> Attestation - Physician/ MATT Attestation The physician spent face to face time with patient:: Yes Advanced Practice Provider documentation review:: Supervising physician onsite and consulted in the evaluation and care of this patient. The physician did have a face to face encounter with the patient. <Onofre Ferrari - Last Filed: 04/24/17 17:00> - Physician/ MATT Attestation Patient care was provided by Advanced Practice Provider:: No The physician spent face to face time with patient:: Yes Advanced Practice Provider documentation review:: Supervising physician onsite and consulted in the evaluation and care of this patient. The physician did have a face to face encounter with the patient. <Silvana Aviles - Last Filed: 04/25/17 01:08> This chart was documented by the indicated scribe, (Meeta Blackwood Scribe) and accurately reflects the services I performed and decisions made by me, Silvana Aviles MD, as attested by the provider's signature.
[2017-04-25] MEDS: ULTRAM PO PRN ×3 (01:50→18:53)
[2017-04-25] MEDS: ZOFRAN IV PRN (03:27)
[2017-04-25 06:02] LABS: MANUAL DIFF NEEDED? NO
[2017-04-25 06:13] LABS: BASO% 0.2 % (0.0-0.8); EOS# 0.25 X1000 (0.0-0.7); EOS% 2.7 % (0.0-10.0); HEMATOCRIT 37.2 % (37.0-47.0); HEMOGLOBIN 11.9 g/dL (12.0-16.0); IMM GRAN# 0.03 X1000 (0.0-0.04); IMM GRAN% 0.3 % (0.0-0.5); LYMPH% 33.8 % (20.5-51.1); MCH 26.4 PG (27-31); MCV 82.7 FL (81-99); MONO# 0.85 X1000 (0.11-0.59); MONO% 9.3 % (1.7-9.3); MPV 9.6 FL (7.4-10.4); NEUT% 53.7 % (42.2-75.2); PLT 255 X1000 (130-400)
[2017-04-25 06:54] LABS: AGAP 13; ALBUMIN 3.6 g/dL (3.5-5.0); ALKALINE PHOSPHATASE 80 U/L (32-104); BUN 9 mg/dL (8-22); CALCIUM 8.5 mg/dL (8.8-10.2); CHLORIDE 97 mmol/L (98-107); CK PROFILE 135 U/L (24-173); COSMO 284; GOT 15 U/L (10-30); GPT 9 U/L (10-36); MAGNESIUM 1.7 mg/dL (1.5-2.7); POTASSIUM 3.4 mmol/L (3.5-5.1); SODIUM 143 mmol/L (136-145); TCO2 33 mmol/L (25-35); TOTAL BILIRUBIN 0.52 mg/dL (0.20-1.00); TOTAL PROTEIN 6.6 g/dL (6.3-8.3)
[2017-04-25 07:03] LABS: FREE T4 1.32 ng/dL (0.93-1.70)
[2017-04-25] MEDS: PRINIVIL PO SCH ×3 (09:44→21:51)
[2017-04-25] MEDS: KLOR-CON PO SCH ×2 (09:44→21:49)
[2017-04-25] MEDS: MEDROL PO SCH ×4 (09:44→21:49)
[2017-04-25] MEDS: COZAAR PO SCH (09:44)
[2017-04-25] MEDS: BACTROBAN OINTMENT TOP SCH (09:45)
--- NOTE | 2017-04-25 10:04 | PROGRESS NOTE ---
DATE: 04/25/2017 SUBJECTIVE: Ms. Arguello was admitted yesterday. She is a 67-year-old with lower extremity edema and erythema, complaining of pain in her legs. She feels much better this morning. Her legs feel much better. Really diminished erythema in the legs. OBJECTIVE: Vital signs: Temperature is 98.5 degrees, pulse 56, respirations 14, blood pressure 101/51 . HEENT: CVP less than 6 cm. Lungs: Clear in all lung gallo. Cardiovascular exam: Regular rhythm and rate without murmur or S3. Abdomen: Soft. Skin: Warm and dry. : The urine output is 6/6 L. LABS: White count 9160, hematocrit 37, platelet count 255,000. Sodium 143, potassium 3.4, chloride 97, BUN 9, creatinine 0.8, magnesium 1.7. Liver functions unremarkable. ASSESSMENT AND PLAN: 1. Pedal edema. It sounds like a little bit of chronic venous insufficiency and diastolic dysfunction. She was on multiple diuretics, which we have stopped. Her legs feel better. We stopped her spironolactone. We stopped her hydrochlorothiazide and Maxzide. The swelling appears diminished and her legs feel better. 2. Hypertension. Blood pressures monitored here look like they are doing well, between 101- 168/51-60. 3. General weakness. Her family was concerned about her. I would like to get her to rehabilitation, and I think questionable pursue care home. Chest x-ray was stable. Asked social workers to help look for rehabilitation possibilities. Note that urine drug screen was positive for methadone. cc: Jonnie Verduzco MD
[2017-04-25] MEDS: NICODERM PATCH TD SCH (12:28)
--- NOTE | 2017-04-25 19:28 | ECHO REPORT ---
ORDER DATE: 04/24/2017 INTERPRETING PHYSICIAN: Dr. Sow REQUESTING PHYSICIAN: Dr. Verduzco CLINICAL INDICATIONS: A 67-year-old female with hypertension, venous insufficiency, morbid obesity. M-MODE MEASUREMENTS: Right ventricle: 3.1 cm. Left ventricle end diastole: 4.0 cm. Left ventricle end systole: 2.7 cm. Posterior wall: 1.4 cm. Interventricular septum: 1.4 cm. Left atrium: 5.4 cm. Aortic root: 3.0 cm. SUMMARY OF 2-DIMENSIONAL IMAGING: The left ventricular function is excellent. Ejection fraction 70%. The right ventricle is probably at the upper limits of normal. The mitral valve shows a mild degree of regurgitation. Pulse wave Doppler of mitral inflow is normal. Tissue Doppler of septal and lateral mitral annulus averages 6 cm per second. Pulmonary venous flow is normal. There is no definite diastolic dysfunction. The tricuspid valve looks normal with a mild degree of regurgitation. The inferior vena cava is enlarged. The pulmonary pressure is estimated at 43-48 mmHg. The pulmonic valve is unremarkable. The aortic valve opens normally. Color flow mapping shows a mild degree of regurgitation. There is a suggestion of a subaortic membrane. The maximum gradient across the outflow tract of the left ventricle is very high, reaching 100 mmHg. The mean gradient is 67 mmHg. This is not a case of valvular aortic stenosis. I believe this is a case of subaortic membrane. No pericardial effusion, masses or thrombus are noted. IMPRESSION: In summary, this study shows: 1. Excellent hyperdynamic left ventricular systolic function with mild degree of concentric LVH. This study was technically difficult. 2. 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 Maximum gradient across this outflow tract obstruction is 109 mmHg. The mean gradient is 67 mmHg. 3. No diastolic dysfunction noted. 4. There is a mild degree of pulmonary hypertension. RECOMMENDATIONS: This patient should pursue transesophageal echocardiogram to assess the left ventricular outflow tract. This is not a case of HOCM. Clinical correlation is strongly recommended. cc: MD Jonnie Downs MD
[2017-04-26] MEDS: BACTROBAN OINTMENT TOP SCH ×3 (03:15→21:13)
[2017-04-26] MEDS: ULTRAM PO PRN ×4 (04:51→23:21)
[2017-04-26] MEDS: KLOR-CON PO SCH ×2 (08:56→21:12)
[2017-04-26] MEDS: COZAAR PO SCH (08:56)
[2017-04-26] MEDS: MEDROL PO SCH ×4 (08:56→21:13)
[2017-04-26] MEDS: PRINIVIL PO SCH (08:56)
[2017-04-26] MEDS: NICODERM PATCH TD SCH (08:57)
--- NOTE | 2017-04-26 10:13 | PROGRESS NOTE ---
DATE: 04/26/2017 SUBJECTIVE: Ms. Arguello is feeling better. She started having some pain in that left hip. Wondering if she could have something for pain. We had a discussion with her and her cousin. We need to try and get her strength up, get her out of bed, and we are going to try and pursue to go into rehab and limit her medication. I want to be careful with the amount, especially with opioid medicines. OBJECTIVE: Temp 98.3 degrees, pulse 70, respirations 20, blood pressure 147/94. Eyes: Pupils are equal, round. Neck: CVP less than 6 cm. Lungs: Clear in all lung gallo. Cardiovascular: Regular rhythm and rate without murmur or S3. Abdomen: Soft. Skin: Warm and dry. Reviewed lab from admission. ASSESSMENT AND PLAN: 1. Pedal edema, chronic venous insufficiency, suspect diastolic dysfunction. Echocardiogram read by Dr. Sow: Excellent hemodynamic left ventricular systolic function with mild degree of concentric left ventricular hypertrophy, technically difficult study. 2. 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 No diastolic dysfunction. We are going to need to pursue a transesophageal echocardiogram to assess left ventricular outflow. This is not a case of hypertrophic output cardiomyopathy. We will officially consult Cardiology, and see if we can pursue an esophageal echocardiogram. cc: Jonnie Verduzco MD
[2017-04-26] MEDS: ZOFRAN IV PRN ×2 (12:22→21:12)
[2017-04-26] MEDS: LASIX IV SCH (17:12)
[2017-04-26] MEDS: ATIVAN PO PRN ×2 (17:12→21:13)
[2017-04-26] MEDS: NORVASC PO SCH (17:12)
--- NOTE | 2017-04-26 19:29 | CONSULTATION ---
DATE OF CONSULTATION: 04/26/2017 IMPRESSION: 1. [id number] congestive heart failure with normal left ventricular ejection fraction. Congestive heart failure predominantly right-sided with elevated central venous pressure and edema. 2. Abnormal echocardiography showing subaortic membrane with severe gradient across number membrane. There also appears to be a small perimembranous ventricular septal defect in association with this. Left ventricle hyperdynamic. 3. Morbid obesity. 4. Chronic ongoing cigarette use. 5. Hypertension. 6. 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 7. Chronic narcotic use. RECOMMENDATIONS: 1. Diurese further. 2. Consider merits of pursuit transesophageal echocardiography. Once patient's congestive heart failure has improved further. She does not appear to be a very good candidate for cardiac surgery for her subaortic membrane but perhaps she may be a candidate for percutaneous balloon dilatation. 3. Smoking cessation discussed. HISTORY: This 67-year-old white female with past history of obesity, nonambulatory due to advanced DJD of the knees and hip, hypertension, and congestive heart failure was admitted with worsening lower extremity edema. She relates that she came in primarily because her blood pressure was elevated. She describes increasing shortness of breath with exertion but no orthopnea. There has been no angina. She is nonambulatory due to DJD of both knees and left hip. She has been on narcotics chronically. She currently has been in the habit of purchasing methadone "off the street." She apparently has been dismissed from several primary care practices in the area. She lives with her son. She uses a lift potty chair and wheelchair at home. She has hypertension and intends to go to the walk-in clinics to get her medications for this. She has history of chronic smoking and smokes perhaps 10 cigarettes daily. PAST MEDICAL HISTORY: 1. Hypertension. 2. Obesity. 3. Nonambulatory. 4. Degenerative joint disease of knees and left hip. PAST SURGICAL HISTORY: 1. Cholecystectomy and hernia repair. 2. She has no known drug allergies. MEDICATIONS: Prior to admission as listed. SOCIAL HISTORY: She has a 20 pack-year history of smoking. She currently smokes 10 cigarettes a day. She does not use alcohol. She does use narcotics on a regular basis. She lives with her son. FAMILY HISTORY: Negative for premature coronary disease. REVIEW OF SYSTEMS: Pulmonary: Noteworthy for dyspnea but negative for orthopnea or cough. Gastrointestinal: Noncontributory. Constitutional: Noncontributory. Remainder view of systems negative/noncontributory with 14 total systems reviewed. PHYSICAL EXAMINATION: General: This is an obese older white female in no distress. Vital signs: Blood pressure 147/94, heart rate 70 and regular. HEENT: Extraocular movements appear intact. Mucous membranes are moist. Neck: Supple. Jugular distention is evident consistent with elevated central venous pressure. There are no carotid bruits. Chest: Clear to auscultation. Cardiac: Reveals a regular rate and rhythm with a grade 2/6. Crescendo decrescendo systolic murmur at the left sternal at the left upper sternal border. Left lower sternal border and apex. No gallop could be appreciated. Abdomen: Soft, nontender. Bowel sounds are normal. Extremities: Demonstrate mild pretibial edema. Neurologic: Reveals her to be alert and fully oriented. Speech is fluent. She moves all 4 extremities equally well. Skin: Warm and dry. Psychiatric: Reveals mood to be appropriate. DATA: ECG demonstrates marked sinus bradycardia with sinus arrhythmia and nonspecific ST and T- wave abnormality. Echocardiography reviewed. Left ventricle is hyperdynamic. Over 100 mm gradient in encountered across left ventricular outflow tract. Subaortic membrane can be seen. There also appears to be a small perimembranous ventricular septal defect immediately adjacent to subaortic membrane. Aortic valve opening appears normal. cc: Daniel Hernandez MD
[2017-04-27] MEDS: LASIX IV SCH ×2 (04:17→15:58)
[2017-04-27] MEDS: ZOFRAN IV PRN ×3 (04:18→13:45)
[2017-04-27] MEDS: ATIVAN PO PRN ×4 (04:18→21:46)
[2017-04-27] MEDS: ULTRAM PO PRN ×3 (05:32→21:43)
[2017-04-27] MEDS: COZAAR PO SCH (09:08)
[2017-04-27] MEDS: NICODERM PATCH TD SCH (09:08)
[2017-04-27] MEDS: NORVASC PO SCH (09:08)
[2017-04-27] MEDS: KLOR-CON PO SCH ×2 (09:08→21:43)
[2017-04-27] MEDS: MEDROL PO SCH ×5 (09:08→21:43)
[2017-04-27] MEDS: BACTROBAN OINTMENT TOP SCH ×2 (09:19→23:13)
--- NOTE | 2017-04-27 16:13 | PROGRESS NOTE ---
DATE: 04/27/2017 SUBJECTIVE: Ms. Arguello is feeling quite a bit better and she would like to have something with her bowels. She is eating better. She is a little stronger. She has kind of waffled back and forth about going to rehab, but I think she is thinking about it at this time. OBJECTIVE: Vital signs: Today, temperature 98 degrees, pulse 76, respirations 16, blood pressure 174/86. Lungs: Clear in all lung gallo. Cardiovascular: Regular rhythm and rate without murmur or S3. Abdomen: Soft. Skin: Warm and dry. : Urine output has been 4600 mL. LABORATORIES: Reviewed from 04/25, CBC and electrolytes. DIAGNOSTICS: Left ventricle hyperdynamic, over 100 mm gradient is encountered across the left ventricular outflow tract. Subaortic membrane cannot be seen. There also appears to be a small perimembranous ventricular septal defect immediately adjacent to the subaortic membrane. Aortic valve appears to be opening normally. EKG demonstrates bradycardia, sinus arrhythmia, nonspecific ST and T-wave abnormalities. ASSESSMENT AND PLAN: Pedal edema. Chronic venous insufficiency. Suspect diastolic dysfunction. Echocardiogram looks good. 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 I am not sure that we need to do anything with this at this point. Continue physical therapy. Continue to try to get her to rehab. We will discuss with Dr. Hernandez, but suspect subaortic membrane with mild degree of aortic regurgitation. Maximum gradient across the aortic valve was 109 mmHg. Other medical problems, hypertension, obesity, degenerative disk disease, aware. She is doing better. Continue to pursue physical therapy and pursue rehab. cc: Jonnie Verduzco MD
--- NOTE | 2017-04-27 16:44 | PROGRESS NOTE ---
DATE: 04/27/2017 CARDIOLOGY FOLLOW-UP NOTE: SUBJECTIVE: Patient continues without dyspnea on room air. There has been no chest pain. She has been able to get up from bed and move to chair with some assistance. She is not independently ambulatory by any means. OBJECTIVE: Vital Signs: Blood pressure 174/86, heart rate 77 and regular, oxygen saturation 96%. There is jugular distention evident consistent with mild elevation in central venous pressure. Chest: Clear to auscultation. Cardiac Exam: Reveals a regular rate and rhythm with a grade 2/6 systolic murmur at the left sternal border. Extremities: Demonstrate trace edema. LABORATORY DATA: Includes a white blood cell count of 9.2, hematocrit 37.2, BUN 9, creatinine 0.8. IMPRESSION: 1. Acute on chronic congestive heart failure with normal left ventricular ejection fraction. Congestive heart failure predominantly right-sided and has improved with diuresis. 2. Abnormal echocardiography showing subaortic membrane with severe gradient across membrane. There is also an associated small perimembranous ventricular septal defect. Left ventricle hyperdynamic. 3. Morbid obesity. 4. Debilitated. 5. Chronic ongoing cigarette use. 6. Hypertension. 7. 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 8. Chronic narcotic use. RECOMMENDATIONS: 1. Manage conservatively for the time being with diuretic therapy. 2. Pursue rehabilitation in hopes of improving patient's physical strength and ability to walk. 3. Smoking cessation. 4. Will follow up as outpatient and consider nonsurgical options for patient's subaortic membrane. Consideration may be given to having the patient evaluated at [facility] to see if transcatheter procedures may be able to approach this. 5. Dr. Flaherty available over the weekend if needed. cc: Daniel Hernandez MD
[2017-04-27] MEDS: COREG PO SCH (21:43)
[2017-04-28] MEDS: ATIVAN PO PRN ×4 (01:55→14:58)
[2017-04-28] MEDS: ZOFRAN IV PRN ×3 (02:06→14:57)
[2017-04-28] MEDS: ULTRAM PO PRN ×3 (03:57→21:43)
[2017-04-28] MEDS: LASIX IV SCH (04:00)
--- NOTE | 2017-04-28 10:10 | PROGRESS NOTE ---
DATE: 04/28/2017 SUBJECTIVE: She reports that her knees are hurting her more, but she did walk some, was able to get up and get to the bedside commode. She would like to have more medicine for pain. I have encouraged her to try and diminish this, her bowels are not moving good, and she does have constipation. OBJECTIVE: Temperature is 98.3, pulse 68, respirations 20, blood pressure 168/74. Pupils are equal. CVP less than 6 cm. Lungs are clear in all lung gallo. Cardiovascular: Regular rate and rhythm without murmur or S3. Abdomen is soft. Skin is warm and dry. Urine output 4300 mL. DIAGNOSTIC DATA: No recent labs. ASSESSMENT AND PLAN: 1. Acute on chronic congestive heart failure with normal left ventricular ejection fraction. Congestive hear failure predominantly right sided and is improved with diuresis and making steady improvement. 2. Abnormal echocardiogram shows a subaortic membrane with severe gradient across the membrane. There is also an associated small perimembranous ventricular septal defect, left ventricle hyperdynamic. 3. Morbid obesity. 4. General weakness and deconditioning. Continue physical therapy. 5. Chronic ongoing cigarette use. 6. Hypertension. 7. Nonambulatory because of her degenerative joint disease, her weight, inactivity and weakness. Continue physical therapy. 8. Chronic narcotic use, I believe is mentioned at home. She does have some constipation. 9. We are going to manage her conservatively. Continue physical therapy. She is on Norvasc 5 mg a day, Coreg 6.25 mg a day, Catapres 0.2 mg q.4 hours p.r.n., Lasix 40 mg IV q.12 and I think we can change that to 40 mg p.o. once a day. Ativan she gets as needed 1 mg q.4 hours, Cozaar 100 mg a day, methylprednisone taper and will continue the taper, nicotine patch 21 mg, Ultram 50 mg q.6 hours p.r.n. cc: Jonnie Verduzco MD
[2017-04-28] MEDS: NORVASC PO SCH (10:23)
[2017-04-28] MEDS: NICODERM PATCH TD SCH (10:24)
[2017-04-28] MEDS: COREG PO SCH ×2 (10:24→21:43)
[2017-04-28] MEDS: MEDROL PO SCH ×3 (10:24→21:43)
[2017-04-28] MEDS: KLOR-CON PO SCH ×2 (10:24→21:43)
[2017-04-28] MEDS: COZAAR PO SCH (10:24)
[2017-04-28] MEDS: BACTROBAN OINTMENT TOP SCH (10:30)
[2017-04-29] MEDS: BACTROBAN OINTMENT TOP SCH ×3 (01:58→21:44)
[2017-04-29] MEDS: ATIVAN PO PRN ×3 (02:03→21:44)
[2017-04-29] MEDS: ULTRAM PO PRN ×3 (04:14→18:16)
[2017-04-29] MEDS ORDERED: TUMS PO ONE (05:06)
[2017-04-29 07:06] LABS: ALBUMIN 4.1 g/dL (3.5-5.0); MAGNESIUM 2.1 mg/dL (1.5-2.7); POTASSIUM 5.1 mmol/L (3.5-5.1); TOTAL BILIRUBIN 0.47 mg/dL (0.20-1.00); TOTAL PROTEIN 7.9 g/dL (6.3-8.3)
[2017-04-29] MEDS: ZOFRAN IV PRN (07:32)
--- NOTE | 2017-04-29 08:22 | PROGRESS NOTE ---
DATE: 04/29/2017 SUBJECTIVE: The patient had a good night. She slept well. She is asking for something stronger for pain but she is already getting tramadol q.6 h. Her anxiety she is asking for something as well. OBJECTIVE: Vital Signs: Temperature is 98.4 degrees, pulse 90, respirations 18, blood pressure 170/78. Lungs: Clear in all lung gallo. Cardiovascular: Regular rhythm and rate without murmur or S3. Abdomen: Soft. Skin: Warm and dry. LABORATORY STUDIES: Sodium 130, potassium 5.1, chloride 89, BUN 35, creatinine 1.0. Calcium 9.0. Albumin 4.1. She would like something for her bowels. ASSESSMENT AND PLAN: 1. Acute on chronic congestive heart failure. Normal left ventricular function so diastolic mainly predominantly right side. She responded to diuresis. Breathing is doing well. 2. Abnormal echocardiogram showed subaortic membrane, severe gradient across membrane associated with small perimembranous ventricular septal defect. Appears to have good compensation. 3. Morbid obesity. 4. General weakness and deconditioning. Continue physical therapy. 5. Hypertension. Blood pressure controlled. 6. Degenerative joint disease. Mainly in her knees and hips and lower back. 7. Chronic narcotic use at home. We are going to try and continue tramadol. 8. Constipation. We will see if we can give her something to help with her bowels. Will try Colace and some MiraLAX to see if that makes any progress. cc: Jonnie Verduzco MD
[2017-04-29] MEDS: LASIX PO SCH (12:07)
[2017-04-29] MEDS: COREG PO SCH ×2 (12:07→21:35)
[2017-04-29] MEDS: MEDROL PO SCH ×2 (12:08→21:35)
[2017-04-29] MEDS: NORVASC PO SCH (12:08)
[2017-04-29] MEDS: NICODERM PATCH TD SCH (12:08)
[2017-04-29] MEDS: COZAAR PO SCH (12:08)
[2017-04-29] MEDS: KLOR-CON PO SCH ×2 (12:08→21:35)
[2017-04-29] MEDS: COLACE PO SCH ×2 (17:29→21:35)
[2017-04-29] MEDS: MIRALAX PO SCH (17:29)
[2017-04-29] MEDS: DULCOLAX PR SCH (17:29)
[2017-04-30] MEDS: ULTRAM PO PRN ×4 (01:22→21:46)
[2017-04-30] MEDS: ZOFRAN IV PRN ×3 (01:24→21:46)
[2017-04-30] MEDS: ATIVAN PO PRN ×5 (01:47→16:23)
[2017-04-30] MEDS: MEDROL PO SCH (07:55)
[2017-04-30] MEDS: NICODERM PATCH TD SCH ×2 (07:58→14:00)
[2017-04-30] MEDS: LASIX PO SCH ×2 (07:58→14:01)
[2017-04-30] MEDS: KLOR-CON PO SCH ×2 (07:59→21:45)
[2017-04-30] MEDS: NORVASC PO SCH (07:59)
[2017-04-30] MEDS: COZAAR PO SCH (07:59)
[2017-04-30] MEDS: COREG PO SCH ×2 (07:59→21:46)
[2017-04-30] MEDS: COLACE PO SCH ×4 (07:59→21:46)
[2017-04-30] MEDS: BACTROBAN OINTMENT TOP SCH ×2 (07:59→21:58)
--- NOTE | 2017-04-30 07:59 | Extremity Venous Study ---
PROCEDURE NAME: Venous U/S Bilateral Legs - 04/26/2017 NAME OF PROCEDURE: Bilateral lower extremity venous ultrasound. REQUESTING PHYSICIAN: Jonnie Verduzco MD. INDICATIONS: Edema, pain, and shortness of breath. FINDINGS: The deep and superficial veins of bilateral lower extremities are visualized along their course. All veins are compressible with forward flow and no evidence intraluminal thrombus. There was an incidentally noted left-sided Rush cyst in the popliteal fossa. SUMMARY: No deep or superficial venous thrombosis seen in bilateral lower extremities. cc: MD Disha Rdz PA
[2017-04-30] MEDS: DULCOLAX PR SCH (08:01)
[2017-04-30] MEDS: MIRALAX PO SCH (08:01)
--- NOTE | 2017-04-30 10:27 | PROGRESS NOTE ---
DATE: 04/30/2017 SUBJECTIVE: Mr. Arguello is feeling a little stronger. Complains of pain in her legs. She is able to ambulate some with some assistance and so we talked about her home situation, talked about plans, and she realizes that she needs to go to rehab and probably will need placement somewhere where she can get some help. PHYSICAL EXAMINATION: Vital Signs: Temperature 98.5 degrees, pulse 69, respirations 14, blood pressure 145/59. HEENT: Pupils are equal and round. Lungs: Are clear in all lung gallo. Cardiovascular Examination: Regular rhythm and rate without murmur or S3. Abdomen: Soft. Skin: Is warm and dry. ASSESSMENT AND PLAN: 1. Acute on chronic congestive heart failure, left ventricular function, predominantly diastolic, and right-sided failure. Has diuresed well and swelling has gone down. 2. Abnormal echocardiogram, showed subaortic membrane, severe grading across the membrane associated with small perimembranous ventriculoseptal defect. Conservative management at this point. 3. Morbid obesity. 4. General weakness and deconditioning. Continue physical therapy. Making progress. 5. Hypertension. Blood pressure well controlled. 6. Degenerative joint disease of the hips, knees, and back. She is on tramadol. 7. She has used I think narcotics at home and trying to keep her off of those. 8. Constipation has resolved. We will continue to look for placement. 9. I reviewed her orders and medications. She is on Norvasc 5 mg a day, Coreg 6.25 mg b.i.d., docusate or Colace 100 mg b.i.d., Lasix 40 mg a day, losartan 100 mg daily, nicotine patch. She is getting MiraLAX 17 g p.o. daily, potassium chloride 40 mEq b.i.d., tramadol 50 mg p.o. q.6 hours p.r.n., and calcium carbonate, she got 1 dose. cc: Jonnie Verduzco MD
[2017-04-30] MEDS ORDERED: TUMS EXTRA STRENGTH PO ONE (14:50)
[2017-05-01] MEDS: ATIVAN PO PRN ×5 (02:27→20:13)
[2017-05-01] MEDS: ULTRAM PO PRN ×3 (04:02→15:31)
[2017-05-01] MEDS: ZOFRAN IV PRN ×3 (04:03→13:42)
[2017-05-01] MEDS: COZAAR PO SCH (08:53)
[2017-05-01] MEDS: COLACE PO SCH ×2 (08:53→20:13)
[2017-05-01] MEDS: NORVASC PO SCH (08:53)
[2017-05-01] MEDS: COREG PO SCH ×2 (08:54→20:13)
[2017-05-01] MEDS: KLOR-CON PO SCH ×2 (08:54→20:13)
[2017-05-01] MEDS: DULCOLAX PR SCH (08:54)
[2017-05-01] MEDS: NICODERM PATCH TD SCH (08:54)
[2017-05-01] MEDS: MIRALAX PO SCH (08:54)
[2017-05-01] MEDS: LASIX PO SCH (08:54)
[2017-05-01] MEDS: BACTROBAN OINTMENT TOP SCH ×2 (10:20→20:14)
[2017-05-01] MEDS ORDERED: TUMS EXTRA STRENGTH PO PRN (10:42)
--- NOTE | 2017-05-01 17:19 | PROGRESS NOTE ---
DATE: 05/01/2017 SUBJECTIVE: Today Ms. Arguello refers to be doing a lot better. However, she says she feels generally weak and she has a lot of pains. She wanted to discuss about how often she wanted her tramadol. I, however, told her that what she has is a lot of degenerative disk disease and the best thing is physical rehabilitation. OBJECTIVE: Vital Signs: Stable. Blood pressure is 138/61, pulse 68, respirations 16, temperature 97.8 degrees. General: Ms. Arguello is a 67-year-old female. She is in bed, not in any distress. HEENT: Mucosa is pink and moist. Anicteric. Acyanotic. Neck: Supple. Chest: Clear. No crepitations. No rhonchi. Cardiovascular: Regular rate and rhythm. There is a 2/6 systolic murmur at the left heart border. Abdomen: Soft, nontender. Extremities: No pedal edema. 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 There is no focal neurological deficit. ASSESSMENT: 1. Acute on chronic diastolic heart failure. EF is 70% with subaortic membrane and also concentric hypertrophic cardiomyopathy. The patient has been evaluated by cardiology and they recommended just medical management. 2. Generalized weakness and deconditioning. [facility] has been consulted. We are pending their acceptance. 3. Chronic pain syndrome secondary to degenerative joint disease. Patient is currently on tramadol. We have advised aggressive physical rehabilitation to improve on her pain. 4. Constipation, improved. PLAN: So in general, I think Ms. Arguello is doing a lot better. We are going to continue with her current med medication and await family welfare social work professor arrangements for rehab placement. cc: Jose Humphreys MD
[2017-05-02] MEDS: ZOFRAN IV PRN ×2 (02:05→06:18)
[2017-05-02] MEDS: ATIVAN PO PRN ×3 (02:05→12:04)
[2017-05-02] MEDS: ULTRAM PO PRN ×2 (03:33→10:07)
[2017-05-02 06:40] LABS: CALCIUM 10.4 mg/dL (8.8-10.2); POTASSIUM 5.4 mmol/L (3.5-5.1)
[2017-05-02 08:07] VITALS: BP 130/60
[2017-05-02] MEDS ORDERED: NS 1,000 ML IV SCH (08:39)
[2017-05-02] MEDS: MIRALAX PO SCH (10:06)
[2017-05-02] MEDS: COZAAR PO SCH (10:06)
[2017-05-02] MEDS: COLACE PO SCH (10:07)
[2017-05-02] MEDS: NORVASC PO SCH (10:08)
[2017-05-02] MEDS: DULCOLAX PR SCH (10:10)
[2017-05-02] MEDS: COREG PO SCH (10:11)
[2017-05-02] MEDS: NICODERM PATCH TD SCH (10:11)
[2017-05-02] MEDS: BACTROBAN OINTMENT TOP SCH (10:15)
--- NOTE | 2017-05-02 11:43 | PROGRESS NOTE ---
DATE: 05/02/2017 SUBJECTIVE: Today Ms. Arguello refers to be doing fine. Continues to have some pain in the knee and was trying to request some more pain medications. However, she stated that she wants to go to the rehab. OBJECTIVE: Vital signs: Blood pressure is 130/60, pulse of 82, respirations 16 , temperature 98.1 degrees. General: Ms. Arguello is a 67-year-old female. She is in bed , not in any distress. HEENT: Mucosa is slightly dry. Anicteric. Acyanotic. Neck: Supple. Chest: Clear. Cardiovascular: Regular rate and rhythm. Abdomen: Soft, nontender. Extremities: No pedal edema. 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 Musculoskeletal: Patient has remarkable pain and tenderness mobilizing both knees, but I did not see any changes of the overlying skin. There are no fluctuations or any anatomy changes. LABORATORY DATA: This has been reviewed. Chemistry: Sodium is 132, potassium is 5.4, chloride is 90, bicarbonate is 27, creatinine is 1.8. ASSESSMENT: 1. Acute on chronic diastolic heart failure. Ejection fraction is 70%. The patient also has concentric hypertrophic cardiomyopathy on echocardiogram. 2. Generalized weakness and deconditioning. 3. Chronic pain syndrome secondary to degenerative joint disease of the knees. 4. Constipation, improved. 5. Acute kidney injury. Creatinine has gone up to 1.8 and BUN is 56. This is all consistent with intravascular depletion. We would, therefore, hydrate the patient for 1 more day and then recheck on her labs to make sure it is fine before we discharge her. Will also withhold the losartan as the kidney function is compromise. Patient vitals are stable. cc: Jose Humphreys MD [facility]
--- NOTE | 2017-05-07 07:18 | PROVIDER DOCUMENTATION ---
This chart was entered by Meeta Blackwood Scribe, acting as scribe for Onofre Ferrari MD. HPI-Respiratory General <AvilesSilvana Eve - Last Filed: 04/30/17 07:50> - General Source: patient - History of Present Illness-Resp Quality of Pain: reports: aching Severity in ED: reports: mild, moderate Onset/Duration: reports: gradual, 5 days ago, 6 days ago Timing: reports: still present Context: denies: recent foreign travel, insect bite (possible tick), recent chemotherapy, multiple patients with similar complaints, recent URI, out of meds , sports/exercise, aspiration/choking, other Exposure: reports: unknown cause. denies: allergen exposure, enviromental allergen exposure, common food allergen exposure, illness exposure, irritant gases exposure, new medication, mold exposure, smoke exposure, toxic exposure, other <Onofre Ferrari - Last Filed: 05/07/17 07:17> - General Chief Complaint: Shortness of Breath Stated Complaint: shortness of breath Time Seen by Provider: 04/24/17 13:07 Allergies/Adverse Reactions: Patient Allergies Allergy/AdvReac Type Severity Reaction Status Date / Time No Known Allergies Allergy Verified 12/24/16 23:38 Home Medications: Home Medication List Medication Instructions Recorded Confirmed Last Taken Type Potassium Chloride 10 meq PO DAILY 12/24/16 04/24/17 3 Weeks Ago History Spironolactone 25 mg PO DAILY 12/24/16 04/24/17 3 Weeks Ago History Losartan Potassium [Cozaar] 100 mg PO DAILY #30 tablet 12/25/16 04/24/17 3 Weeks Ago Rx Triamterene/Hctz [Maxzide 75/50] 1 each PO DAILY #30 tablet 12/25/16 04/24/17 3 Weeks Ago Rx Tramadol [Ultram] 50 mg PO Q6H PRN PRN #20 tablet 03/17/17 04/24/17 3 Weeks Ago Rx - History of Present Illness-Resp Nature of Presenting Problem: Patient is a 67 year old female who presents in the ED with complaints of dyspnea. Patient states she has felt short of breath over the last 5 to 6 days, and states her dyspnea is worse with lying down. She also states she has chronic pain in her legs that has been worsening recently, and states she also has chronic edema in her legs that is unchanged. Patient denies chest pain and any other symptoms. (Meeta Blackwood) Patient is a 67 year old female who presents in the ED with complaints of dyspnea. Patient states she has felt short of breath over the last 5 to 6 days, and states her dyspnea is worse with lying down. She also states she has chronic pain in her legs that has been worsening recently, and states she also has chronic edema in her legs that is unchanged. Patient denies chest pain and any other symptoms. (Onofre Ferrari) Review of Systems - Adult - REVIEW OF SYSTEMS - ADULT Constitutional: reports: no symptoms reported Eyes: reports: no symptoms reported Ears, Nose, Mouth & Throat: reports: no symptoms reported Cardiovascular: reports: edema, orthopnea Respiratory: reports: cough, dyspnea on exertion, shortness of breath Gastrointestinal: reports: no symptoms reported Genitourinary: reports: dysuria Musculoskeletal: reports: no symptoms reported Integumentary: reports: rash (under abdominal skin flap) Neurological: reports: no symptoms reported Psychiatric: reports: no symptoms reported Endocrine: reports: no symptoms reported Hematologic/Lymphatic: reports: no symptoms reported Allergic/Immunologic: reports: no symptoms reported All Other Systems: Reviewed and Negative <Silvana Aviles - Last Filed: 04/30/17 07:50> - REVIEW OF SYSTEMS - ADULT Constitutional: reports: no symptoms reported <Onofre Ferrari - Last Filed: 05/07/17 07:17> Past History - Adult - PAST MEDICAL HISTORY-ADULT Review of Records: reports: Old Records Reviewed, Nursing Assessment Review, Medications Reviewed, Social history reviewed & non-contributory. <Silvana Aviles - Last Filed: 04/30/17 07:50> - PAST MEDICAL HISTORY-ADULT Review of Records: reports: Old Records Reviewed, Nursing Assessment Review, Medications Reviewed Major Childhood Illnesses: reports: denies history Cardiovascular: reports: CHF, HTN, hyperlipidemia Respiratory: reports: denies history Gastrointestinal: reports: GERD Obstetrical/Gynecological: reports: denies history Genitourinary: reports: denies history Musculoskeletal: reports: arthritis Neurological: reports: denies history Endocrine/Immune: reports: denies history Other Conditions: reports: denies history - PRIOR SURGERIES/PROCEDURES Surgical/Procedure History: reports: none - IMMUNIZATION STATUS Childhood Immunizations: See Nurse Assessment Flu Vaccine: See Nurse Assessment - FAMILY HISTORY Family History: reviewed, not pertinent - SOCIAL HISTORY Smoking: non-smoker, quit greater than 1 year Substance Use: none/never Alcohol Use Frequency: never Living Situation: family <Onofre Ferrari X - Last Filed: 05/07/17 07:17> Physical Exam-General - RESPIRATORY Respiratory: crackles - SKIN Integumentary: other (bilateral mild erythema ankles to knees, tender to touch) <Silvana Aviles X - Last Filed: 04/30/17 07:50> - PHYSICAL EXAM-ADULT Initial Vital Signs Reviewed: Yes - CONSTITUTIONAL General Appearance: alert, no apparent distress - EYES Eyes: PERRL/EOMI, pink conjunctivae - HEAD, EARS, NOSE, MOUTH & THROAT HENMT: normocephalic/atraumatic, moist mucous membranes - NECK Neck: non-tender, full range of motion, supple, normal inspection - RESPIRATORY Respiratory: chest non-tender, no pleuratic chest pain, no accessory muscle use , respiratory distress (dyspneic - able to speak in full sentences but must stop to catch breath intermittently), decreased breath sounds (diminished breath sounds bilaterally) - CARDIOVASCULAR Cardiovascular: no gallop, no JVD, no murmur, bradycardia, other (distant heart sounds) - GASTROINTESTINAL (ABDOMEN) Abdominal Exam: non tender, soft, no organomegaly, no pulsatile mass - LYMPHATIC Lymphatic: no adenopathy - MUSCULOSKELETAL Back Exam: normal inspection, no CVA tenderness, no vertebral tenderness Extremity: normal range of motion, non-tender, normal gait, normal inspection, no calf tenderness, normal capillary refill, pelvis stable, pedal edema (2+ bilateral lower extremity edema) - SKIN Integumentary: normal color, normal turgor, warm/dry - NEUROLOGIC Neurologic: grossly normal, no motor/sensory deficits - PSYCHIATRIC Psych/Mental Status: normal mood/affect, oriented x 3 <Onofre Ferrari X - Last Filed: 05/07/17 07:17> Progress - PLAN OF CARE/RESULTS Result Diagrams: 04/25/17 05:46 04/29/17 06:25 - EKG 1 EKG Interpretation (*Must complete 3 of following elements*): Abnormal Rate: 40 FL Interval: normal ST Wave: normal - XRAY 1 XRAY Study: Chest (stable, chronic opacity in RML, atelectasis vs scarring) <Silvana Aviles X - Last Filed: 04/30/17 07:50> - PLAN OF CARE/RESULTS Result Diagrams: 04/25/17 05:46 05/02/17 05:46 - XRAY 1 XRAY Study: Chest Impression: Normal XRAY Interpretation: stable chest. <Onofre Ferrari X - Last Filed: 05/07/17 07:17> - PLAN OF CARE/RESULTS Progress/Plan/Lab Results: Orders Category Date Time Status Admit - [facility] Routine AdmDCTranf 04/24/17 20:42 Ordered Activity - Up with Assistance ORDERED Care 04/24/17 20:42 Active Paredes Cath Insertion ORDERED Care 04/24/17 17:43 Completed Intake and Output-Strict ORDERED Care 04/24/17 20:42 Active Nursing- Assist w/ IS as order ORDERED Care 04/24/17 20:42 Active Vital Signs Order Q 8-HR ASSESS Care 04/24/17 20:42 Active Z-Document. for Tele Applied ORDERED Care 04/24/17 20:42 Completed Dietitian Consult Routine Cons 04/24/17 20:42 Completed Social Service Consult Routine Cons 04/24/17 20:42 Active Heart Healthy Diet Diet 04/24/17 17:54 Completed CHEST-PORTABLE [RAD] Stat Exams 04/24/17 13:09 Completed BNP [PRO B-NATRIURETIC PEPTIDE] Stat Lab 04/24/17 11:45 Completed CBC WITH DIFF [HEME] Routine Lab 04/25/17 05:46 Completed CBC WITH DIFF [HEME] Stat Lab 04/24/17 11:45 Completed CK PROFILE [SP CHEM] Routine Lab 04/25/17 05:46 Completed CMP [COMPREHENSIVE METABOLIC PANEL] [CHEM] Stat Lab 04/24/17 11:45 Completed COMPREHENSIVE METABOLIC PANEL [CHEM] Routine Lab 04/25/17 05:46 Completed D-DIMER [CHEM] Stat Lab 04/24/17 11:45 Completed FOLATE Routine Lab 04/25/17 05:46 Completed FREE T4 Routine Lab 04/25/17 05:46 Completed MAGNESIUM [CHEM] Routine Lab 04/25/17 05:46 Completed TROPONIN T Routine Lab 04/25/17 05:46 Completed TROPONIN T Stat Lab 04/24/17 11:45 Completed TSH Routine Lab 04/25/17 05:46 Completed UA NIMS W/REFLEX CULT [URINALYSIS] Routine Lab 04/24/17 22:12 Completed UA NIMS W/REFLEX CULT [URINALYSIS] Stat Lab 04/24/17 13:28 Completed URINE DRUG SCREEN Stat Lab 04/24/17 22:12 Completed VITAMIN B12 Routine Lab 04/25/17 05:46 Completed Cefazolin 1 gm/D5w [Kefzol 1 gm/D5w] Med 04/24/17 17:08 Discontinued 1 gm in 50 ml IV NOW Clonidine [Catapres] Med 04/24/17 20:42 Discontinued 0.2 mg PO Q4H PRN PRN Furosemide [Lasix] Med 04/24/17 16:54 Discontinued 60 mg IV NOW ONE LISINOpril [Prinivil] Med 04/24/17 21:00 Discontinued 10 mg PO BID Losartan [Cozaar] Med 04/24/17 20:42 Discontinued 100 mg PO DAILY Mupirocin Ointment [Bactroban Ointment] Med 04/24/17 21:00 Discontinued 1 gm TOP BID Potassium Chloride E.r. [Klor-Con] Med 04/24/17 21:00 Discontinued 40 meq PO BID Promethazine [Phenergan] Med 04/24/17 17:26 Discontinued 25 mg IV NOW ONE Sodium Chloride 0.9% Med 04/24/17 17:26 Discontinued 10 ml INJ NOW ONE Tramadol [Ultram] Med 04/24/17 20:42 Discontinued 50 mg PO Q6H PRN PRN Incentive Spirometer Routine Oth 04/24/17 20:42 Completed Oxygen Device Routine Oth 04/24/17 20:42 Completed Telemetry [OM.EQ] Routine Oth 04/24/17 20:42 Active EKG [EKG] Stat Ther 04/24/17 13:08 Draft Echo Spec/Color Dop W/O Contra Routine Ther 04/24/17 20:42 Completed Physical Therapy Eval/Treatment [OM.PT] Routine Ther 04/24/17 20:42 Active Transfer/Admit Order [TRANSFER] Routine Transfer 04/24/17 17:51 Completed Departure - Departure Date of Disposition Decision: 04/24/17 Time of Disposition Decision: 17:00 Certified Medical Emergency: Emergent <Silavna Aviles X - Last Filed: 04/30/17 07:50> - Departure Date of Disposition Decision: 04/24/17 Time of Disposition Decision: 17:00 Certified Medical Emergency: Emergent - Critical Care Note This patient required my direct & personal management of CC.: No <Onofre Ferrari - Last Filed: 05/07/17 07:17> - Departure DIAGNOSIS: Bradycardia, CHF (congestive heart failure) Disposition: ADMITTED INPATIENT 09 Condition: Stable Attestation - Physician/ MATT Attestation Patient care was provided by Advanced Practice Provider:: No The physician spent face to face time with patient:: Yes Advanced Practice Provider documentation review:: Supervising physician onsite and consulted in the evaluation and care of this patient. The physician did have a face to face encounter with the patient. <Silvana Aviles - Last Filed: 04/30/17 07:50> - Physician/ MATT Attestation Patient care was provided by Advanced Practice Provider:: No The physician spent face to face time with patient:: Yes Advanced Practice Provider documentation review:: Supervising physician onsite and consulted in the evaluation and care of this patient. The physician did have a face to face encounter with the patient. <Onofre Ferrari - Last Filed: 05/07/17 07:17> This chart was documented by the indicated scribe, (Meeta Blackwood Scribe) and accurately reflects the services I performed and decisions made by me, Onofre Ferrari MD, as attested by the provider's signature.
--- NOTE | 2017-05-10 05:56 | DISCHARGE SUMMARY ---
ADMISSION DATE: 04/24/2017 DISCHARGE DATE: 05/02/2017 CONSULTATIONS DURING THIS ADMISSION: Cardiology was consulted. Patient was seen by Dr. Hernandez. INVASIVE PROCEDURES DONE DURING THIS ADMISSION: None. IMAGING STUDIES OF SIGNIFICANCE: 1. An echocardiogram was done on 04/24/2017 that shows ejection fraction of 70%. 2. Extremity studies were done which show no DVT. ADMISSION DIAGNOSES: 1. Pedal edema. 2. Hypertension. 3. Chronic venous insufficiency. 4. Generalized weakness. DISCHARGE DIAGNOSES: At the time of discharge/against medical advice: 1. Acute on chronic diastolic heart failure. 2. Generalized weakness and deconditioning. 3. Chronic pain syndrome. 4. Degenerative joint disease of the knees. 5. Constipation. 6. Acute kidney injury, improving. PRESENTING COMPLAINT: Leg swelling. HISTORY OF PRESENTING COMPLAINT: Ms. Arguello is a 67-year-old, female who presented because of lower extremity swelling and some shortness of breath. The patient was found to be in fluid overload, likely due to diastolic heart failure. Was admitted for further medical care. HOSPITAL COURSE: The patient did pretty well during the hospital course. Was adequately diuresed. She had a negative balance of [id number] on diureses. Patient's weight also decreased at discharge. However, during the hospital stay, she did complain of a lot of pains all over and wanted narcotics for pain control. Because we did not yield to that request, she decided to go against medical advice. The patient was advised on multiple occasions that echocardiogram had some membrane and there was the suggestion that a YESENIA would be advisable but regardless, she said she wanted to go. Patient therefore left AMA. cc: Jose Humphreys MD MTDD
== END 2017-05-02 17:55 | disposition left against medical advice (07) ==
LOC: SUPCPDRO → ED 12:16 → 4N 19:44 → SUATTDRO 19:44 → 4N 04-26 18:59
PROVIDERS: ATTEND Internal Medicine